=== PATIENT | male | born 1945 | race African-American/Black ===

== ENCOUNTER 2019-12-10 14:43 | Emergency (ER) | payer MEDICARE ==
[2019-12-10] MEDS ORDERED: NORMAL SALINE 1000 ML 1,000 ML IV ONE (15:24)
[2019-12-10] MEDS ORDERED: DEXAMETHASONE SOD PHOS INJ 10 MG/1 ML VIAL IV ONE (15:25)
--- NOTE | 2019-12-10 15:29 | ER Document Report ---
ED General - General Stated Complaint: COVID+, HYDRATION THERAPY Time Seen by Provider: 12/10/19 14:56 Primary Care Provider: ROBB BEDOYA MD [Primary Care Provider] - Follow up as needed Mode of Arrival: Medic Information source: Patient Notes: 74-year-old man presenting to the emergency department with a history of tested positive for COVID-19 on Wednesday. After receiving the results he has been quarantining at home. States that his daughter was concerned and start that he was not his normal self. Patient states that he feels fine he ate a breakfast this morning with eggs sausage juice and coffee. He states that he agreed to come to the hospital because she thought he needed to get IV fluids and was getting dehydrated. He denies shortness of breath, weakness, nausea vomiting or diarrhea. He thinks he contracted the coronavirus from a coworker approximately 1 week ago. TRAVEL OUTSIDE OF THE [place] IN LAST 30 DAYS: No - Related Data Allergies/Adverse Reactions: No Known Allergies Allergy (Verified 03/25/13 05:21) Past Medical History - Social History Smoking Status: Unknown if Ever Smoked Family History: Reviewed & Not Pertinent - Past Medical History Cardiac Medical History: Reports: Hx Hypertension Review of Systems - Review of Systems Notes: Constitutional: + Episodic fever. HENT: Negative for sore throat. Eyes: Negative for visual changes. Cardiovascular: Negative for chest pain. Respiratory: Negative for shortness of breath. Gastrointestinal: Negative for abdominal pain, vomiting or diarrhea. Genitourinary: Negative for dysuria. Musculoskeletal: Negative for back pain. Skin: Negative for rash. Neurological: Negative for headaches, weakness or numbness. 10 point ROS negative except as marked above and in HPI. Physical Exam - Notes Notes: PHYSICAL EXAMINATION: Physical Exam: General: Well-nourished well-developed 74-year-old man in no acute distress HEENT: NC/AT, pupils equal round and reactive to light, MM moist,nares clear, oropharynx clear, airway patent Neck: supple, no adenopathy, no masses. Good range of motion Lungs: clear, no wheezing, no rales no rhonchi CVS: Regular rate and rhythm no murmur gallop or rub Abdomen: Soft, active, nontender, no masses, no hepatosplenomegaly Ext: No edema, clubbing or cyanosis. Neuro: Alert and responsive, moving all 4 extremities on command, cranial nerves intact, no focal findings Skin: Intact no open lesions, no rash Course - Re-evaluation Re-evalutation: 12/10/19 15:28 I have agreed to give the patient a 1 L of normal saline I am also given him Decadron 10 mg IV. He states he is using vitamin D I am also encouraging that he start zinc oxide at 50 mg daily. He feels fine where foregoing any laboratory data at this time. Discharge - Discharge Clinical Impression: COVID-19, Volume depletion Condition: Good Disposition: HOME, SELF-CARE Additional Instructions: You were seen today in the emergency department and given IV fluids and Decadron for symptoms related to your coronavirus infection. Please continue to hydrate well please continue to self isolate/self quarantine and wear a mask. You are using vitamin D already. Please add zinc oxide at 50 mg daily as this may help to improve your immune response to the virus. Be discharging you with a prescription for Decadron 6 mg daily for the next 5 days. Follow-up with your primary care doctor as needed If you are having difficulties with shortness of breath, increasing weakness or other concerns you may return to the emergency department for further management. HOME CARE INSTRUCTIONS & INFORMATION: Thank you for choosing us for your medical needs. We hope you're satisfied with the care you received. After you leave, you must properly care for your problem and, at the same time, observe its progress. Any condition can change. Some illnesses can change rapidly over hours or days. If your condition worsens, return to the Emergency Department or see your physician promptly. ABOUT YOUR X-RAYS AND EKG'S: If you had an EKG or X-rays taken, they have been read by the Emergency Physician. The X-rays and EKG's will also be read by a Radiologist or Director Of Loss Prevention within 24 hours. If discrepancies are noted, you will be notified by telephone. Please be certain the ED has a correct telephone number & address where you can be reached. Also, realize that some fractures or abnormalities do not show up on initial X-rays. If your symptoms continue, see your physician. ABOUT YOUR LABORATORY TEST: If you had laboratory tests, the results have been reviewed by the Emergency Physician. Some test results (for example cultures) may not be available for several days. You will be contacted if any test result shows you need additional treatment. Please be certain the ED has a correct telephone number and address where you can be reached. ABOUT YOUR MEDICATIONS: You will receive instructions on how to take your medicine on the prescription label you receive. Additional information may be provided by the Pharmacy. If you have questions afterwards, call the ED for clarification or further instructions. Some prescribed medications may cause drowsiness. Do not perform tasks such as driving a car or operating machinery without consulting your Pharmacist. If you feel you need a refill of pain medication, your condition will need re-evaluation. Please do not call for a refill of any medication. ABOUT YOUR SIGNATURE: Signature of this document acknowledges to followin. Understanding that you received emergency treatment and that you may be released before al medical problems are known or treated. Please be certain the ED has a correct phone number & address where you can be reached. 2. Acknowledgement that you will arrange for follow-up care as recommended. 3. Authorization for the Emergency Physician to provide information to your follow-up Physician in order to maximize your care. AT ANY TIME, IF YOUR SYMPTOMS CHANGE SIGNIFICANTLY OR WORSEN OR YOU DEVELOP NEW SYMPTOMS, RETURN TO THE EMERGENCY DEPARTMENT IMMEDIATELY FOR RE-EVALUATION. OUR GOAL IS TO PROVIDE EXCELLENT MEDICAL CARE! WE HOPE THAT WE HAVE MET YOUR EXPECTATIONS DURING YOUR EMERGENCY DEPARTMENT VISIT AND THAT YOU FEEL YOU HAVE RECEIVED EXCELLENT CARE! Prescriptions: Dexamethasone [Decadron] 6 mg PO DAILY #5 tablet Referrals: ROBB BEDOYA MD [Primary Care Provider] - Follow up as needed
[2019-12-10 16:51] VITALS: BP 134/81
== END 2019-12-10 16:53 | disposition home or self-care (01) ==
LOC: ER 14:43
DX: E86.9 Volume depletion, unspecified (principal); U07.1 COVID-19; I10 Essential (primary) hypertension
CPT/HCPCS: 99284; 96361; 96374; J7030; J1100